=== PATIENT | female | born 1940 | race Caucasian/White ===

== ENCOUNTER 2024-06-02 14:03 | Emergency (ER) | payer MEDICARE, MEDICAID, SELFPAY ==
--- NOTE | 2024-06-02 14:16 | XR_ITS ---
Examination: CT brain head without contrast. 2-D sagittal coronal reconstructions Date and time of exam:June 02, 2024 at 1421 hrs. Indications: Stroke alert, onset focal neurologic deficit today CTDI: vol (mGy):45.1 DLP: (mGycm):831. Technique: Multiple CT axial sections of the brain have been obtained, 5 mm slice thickness. Contrast has not been administered. 2-D sagittal, coronal reconstructions have been obtained Low dose protocols were performed. One or more of the following dose reduction techniques were used; automated exposure control, adjustment of the mA and/or KV according to patient size, use of iterative reconstruction technique. Findings: No significant ventricular enlargement. Subtle low-density in the left cerebral hemisphere Intra-axial or extra-axial hemorrhage density is not seen. No mass effect or midline shift Basal cisterns are not remarkable. Fourth ventricle is midline. Cranial vault intact. Impression: Negative for acute hemorrhage, mass effect or midline shift Subtle low-density in the left cerebral hemisphere, which may be artifactual, however early acute infarct and left middle cerebral artery distribution cannot be excluded Recommend brain MRI follow-up without contrast, stroke protocol
--- NOTE | 2024-06-02 14:16 | EKG_ITS ---
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: : [id number] Requested By: Leni Mott Order Number: [id number] Reading MD: Leni Mott Measurements Intervals [place] Rate: 52 P: 65 DE: 223 QRS: -3 QRSD: 107 T: 33 QT: 465 QTc: 433 Interpretive Statements SINUS BRADYCARDIA WITH FIRST DEGREE AV BLOCK MODERATE INTRAVENTRICULAR CONDUCTION DELAY [105+ ms QRS DURATION, 80+ ms Q/S IN V1/V2, NO Q AND 60+ ms R IN I/aVL/V5/V6] Compared to ECG 10/22/2023 11:55:55 First degree AV block now present Intraventricular conduction delay now present Sinus rhythm no longer present ST (T wave) deviation no longer present /store/S0/[id number]/[id number].pdf
--- NOTE | 2024-06-02 14:17 | PD.EDADULT ---
ED General RME/HPI General Chief complaint: Altered Mental Status Stated complaint: ALTERED Time Seen by Provider: 06/02/24 14:16 Arrival date/time: 06/02/24 14:03 RME / HPI RME / HPI narrative: 84-year-old female with significant history of DVT, hypertension, GERD, anemia, dementia, was brought in by EMS for evaluation regarding strokelike symptoms. Last well-known time was around breakfast time, around 8:30 AM today, family visited her this afternoon and was noted to be less responsive than usual. Patient normally is GCS 14 currently GCS 10. Patient was noted to not moving the right upper and lower extremity also. Patient was noted to have neglect on the left side. No other pertinent information can be extracted at this time. Related Data Home Medications ?Medication ?Instructions ?Recorded ?Confirmed calcium carbonate 1,000 mg PO QDAY 05/20/23 10/19/23 hydrocodone 5 mg-acetaminophen 325 1 tab PO BID PRN Pain (Scale Score 05/20/23 10/19/23 mg tablet 7-10) melatonin 3 mg tablet 3 mg PO HS 05/20/23 10/19/23 acetaminophen 325 mg tablet 650 mg PO QID PRN Mild Pain (Scale 08/02/23 10/19/23 (Tylenol) Score 1-4) multivitamin with minerals 1 tab PO QDAY 08/02/23 10/19/23 bisacodyl 10 mg rectal suppository 10 mg UT QDAY PRN Constipation 10/19/23 10/19/23 (Dulcolax (bisacodyl)) fluticasone fur. 200 mcg-umeclid ea inhalation DAILY 10/19/23 62.5 mcg-vilant 25 mcg inhalat.powder (Trelegy Ellipta) ipratropium 0.5 mg-albuterol 3 mg 2.5 ml inhalation Q6HR PRN Wheezing 10/19/23 10/19/23 (2.5 mg base)/3 mL nebulization soln magnesium hydroxide 400 mg/5 mL 30 ml PO QDAY PRN Constipation 10/19/23 10/19/23 oral suspension (Milk of Magnesia) montelukast 10 mg tablet 10 mg PO QDAY 10/19/23 10/19/23 sodium phosphates 19 gram-7 118 ml UT QDAY PRN Constipation 10/19/23 10/19/23 gram/118 mL enema (Enema Disposable) Previous Rx's ?Medication ?Instructions ?Recorded lisinopril 20 mg tablet 20 mg PO QDAY 90 days #90 tabs 08/03/23 metoprolol succinate 25 mg 12.5 mg (1/2 x 25 mg) PO QDAY #15 10/25/23 tablet,extended release 24 hr tabs spironolactone 25 mg tablet 25 mg PO QDAY #30 tabs 10/25/23 Allergies Allergy/AdvReac Type Severity Reaction Status Date / Time No Known Drug Allergies Allergy Verified 06/02/24 18:08 Review of Systems Review of Systems Narrative Review of Systems: Review of system reviewed and within normal limits except mentioned in HPI Course Quality Measures none Orders Category Date Time Status Bedside Blood Glucose NOW Care 06/02/24 14:16 Completed Driver/Guide NOW Care 06/02/24 14:16 Completed Continuous Pulse Oximetry NOW Care 06/02/24 14:16 Completed EKG (ED ONLY) *Do not use* NOW Care 06/02/24 14:16 Completed In and Out Catheter NEEDED Care 06/02/24 14:16 Completed Insert IV NOW Care 06/02/24 14:16 Completed NIH Stroke Scale now Care 06/02/24 14:16 Completed NPO NOW Care 06/02/24 14:16 Completed Nurse Swallow Screen x1 Care 06/02/24 14:16 Completed Consult to Neurology / Tele-Neurology Routine Cons 06/02/24 14:16 Active Referral Hospice Stat Cons 06/02/24 15:[address] angio stroke protocol Stat Exams 06/02/24 14:[address] stroke protocol Stat Exams 06/02/24 14:16 Completed EKG (ED Only) Stat Exams 06/02/24 14:16 Draft Ammonia Stat Lab 06/02/24 14:33 Ordered CBC Stat Lab 06/02/24 14:16 Ordered Comprehensive Metabolic Panel Stat Lab 06/02/24 14:16 Ordered HCG Titer if Positive Stat Lab 06/02/24 14:16 Ordered Magnesium Stat Lab 06/02/24 14:16 Ordered Partial Thromboplastin Time Stat Lab 06/02/24 14:16 Ordered Prothrombin Time with INR Stat Lab 06/02/24 14:16 Ordered Troponin I Stat Lab 06/02/24 14:16 Ordered Aspirin Supp Med 06/02/24 14:51 Discontinued 300 mg UT X1 ONE Morphine Inj Med 06/02/24 16:58 Discontinued 2 mg IVP Q30M PRN Ondansetron Inj [Zofran Inj] Med 06/02/24 14:16 Discontinued 4 mg IV Q4HR PRN Ondansetron Inj [Zofran Inj] Med 06/02/24 17:00 Discontinued 4 mg IV X1 ONE Ringers Lactated 500 ml [Lactated Ringers] 500 ml Med 06/02/24 17:00 Discontinued IV 125 mls/hr Oxygen Delivery NOW RT 06/02/24 14:16 Completed Vital Signs Vital signs: Vital Signs Temperature 97.4 F 06/02/24 15:03 Pulse Rate 67 06/02/24 15:03 Respiratory Rate 15 06/02/24 15:03 Blood Pressure 121/50 L 06/02/24 15:03 Pulse Oximetry (%) 100 06/02/24 15:03 Oxygen Delivery Method Nasal Cannula 06/02/24 15:03 Oxygen Flow Rate 2 06/02/24 15:03 Discharge Plan Plan Patient Disposition: Xfer Skilled Nsg Fac (SNF) Prescriptions/Referrals Prescriptions/Med Rec: No Action melatonin 3 mg Tablet 3 mg PO HS calcium carbonate 500 mg calcium (1,250 mg) Tablet,Chewable 1,000 mg PO QDAY hydrocodone-acetaminophen 5-325 mg Tablet 1 tab PO BID PRN (Reason: Pain (Scale Score 7-10)) acetaminophen [Tylenol] 325 mg Tablet 650 mg PO QID PRN (Reason: Mild Pain (Scale Score 1-4)) multivitamin with minerals Tablet 1 tab PO QDAY lisinopril 20 mg Tablet 20 mg PO QDAY 90 Days Qty: 90 1RF ipratropium-albuterol 0.5 mg-3 mg(2.5 mg base)/3 mL Solution For Nebulization 2.5 ml INHALATION Q6HR MDD 10 PRN (Reason: Wheezing) magnesium hydroxide [Milk of Magnesia] 400 mg/5 mL Suspension 30 ml PO QDAY PRN (Reason: Constipation) Rx Instructions: if no bm in 3 days bisacodyl [Dulcolax (bisacodyl)] 10 mg Suppository 10 mg UT QDAY MDD 1 PRN (Reason: Constipation) Enema Disposable 19-7 gram/118 mL Enema 118 ml UT QDAY MDD 1 PRN (Reason: Constipation) montelukast 10 mg Tablet 10 mg PO QDAY Treleebony Ellipta 200-62.5-25 mcg Blister With Device INHALATION DAILY metoprolol succinate 25 mg tablet extended release 24 hr 12.5 mg PO QDAY Qty: 15 3RF spironolactone 25 mg tablet 25 mg PO QDAY Qty: 30 3RF Referrals: Jeff Lechuga MD [Primary Care Provider] - In 1 week Problem List Clinical Impression: Acute CVA (cerebrovascular accident), Hospice care Patient/Caregiver Discharge Instructions Education Materials: Effects of a Stroke on the ... Additional Instructions: Thank you for the opportunity for serving you today. You are stable for discharged . You are advised to: Follow-up with your hospice care in your facility Return to ED for worsening of symptoms Print Language: Turkish Stand Alone Forms: Lilly Award Info., Patient Portal Info Letter [facility] Patient Acuity Narrative: 84 y o female with significant history of DVT, hypertension, GERD, anemia, dementia, was brought in by EMS for evaluation regarding strokelike symptoms. Last well-known time was around breakfast time, around 8:30 AM today, family visited her this afternoon and was noted to be less responsive than usual. Patient normally is GCS 14 currently GCS 10. Patient was noted to not moving the right upper and lower extremity also. Patient was noted to have neglect on the left side. No other pertinent information can be extracted at this time. Stroke alert was initiated right away CT of the head showedNegative for acute hemorrhage, mass effect or midline shift Subtle low-density in the left cerebral hemisphere, which may be artifactual, however early acute infarct and left middle cerebral artery distribution cannot be excluded Recommend brain MRI follow-up without contrast, stroke protocol CTA of the head and neck showed Dense opacity in the left upper lobe, consider aspiration pneumonia Occlusion proximal left internal carotid artery with thrombus in the internal carotid artery, no filling of the left petrous juxtasellar supraclinoid internal carotid artery No filling M1 segment left middle cerebral artery or left middle cerebral artery trifurcation vessels Plan of care discussed with the patient family. Discussed option of transferring her since the onset last well-known time is less than 24 hours, family made a conference with other siblings, and decided to follow the wishes of the patient not to do intubation or chest compression. And they ultimately decided to do hospice care. Patient was referred to social insurance administrator and social insurance administrator arrange for hospice care. [facility] Medication Administration(s) Medication Administration History Discontinued Medications Aspirin (Aspirin 300 Mg Supp) 300 mg UT X1 ONE Stop: 06/02/24 14:52 Last Admin: 06/02/24 18:39 Dose: Not Given Documented By: ZINA Non-Admin Reason: Other, see note Lactated Ringer's (Lactated Ringers) 500 mls @ 125 mls/hr IV .Q4H ONE Stop: 06/02/24 20:59 Last Admin: 06/02/24 18:39 Dose: 125 mls/hr Documented By: ZINA Morphine Sulfate (Morphine Sulf Inj 10 Mg/Ml Vial) 2 mg IVP Q30M PRN PRN Reason: AGITATION Last Admin: 06/02/24 18:27 Dose: 2 mg Documented By: ZINA Ondansetron HCl (Ondansetron Inj 2 Mg/Ml Inj 2 Ml) 4 mg IV Q4HR PRN PRN Reason: NAUSEA OR VOMITING Stop: 07/02/24 14:15 Ondansetron HCl (Ondansetron Inj 2 Mg/Ml Inj 2 Ml) 4 mg IV X1 ONE; Protocol Stop: 06/02/24 17:01 Last Admin: 06/02/24 18:14 Dose: 4 mg Documented By: ZINA
--- NOTE | 2024-06-02 14:41 | XR_ITS ---
Examination: CTA carotids with intravenous contrast CTA brain, head with intravenous contrast. 2-D sagittal, coronal reconstructions. 3-D reconstructions. Exam date and time: June 02, 2024 1433 hrs. Stroke alert, onset focal neurologic deficit today CTDI: vol (mGy) 21 DLP: (mGycm) 370 Technique: Multiple CTA axial brain, head carotid images post intravenous contrast injection 100 cc, [id number]. 2-D sagittal, coronal reconstructions. 3-D reconstructions, 3-D post processing including vascular maximum intensity projection images. Low dose protocols were performed. One or more of the following dose reduction techniques were used; automated exposure control, adjustment of the mA and/or KV according to patient size, use of iterative reconstruction technique. Findings: Dense opacity in the left upper lobe Moderate calcification at the right carotid bifurcation, 20% stenosis involving the bifurcation and origin of the internal carotid artery Occlusion of the proximal left internal carotid artery with thrombus in the internal carotid artery, no filling including in the petrous and juxtasellar portions internal carotid artery Right M1 segment middle cerebral artery trifurcation vessels fill No filling of the supraclinoid portion of the left internal carotid artery and occlusion of the M1 segment left middle cerebral artery no filling of left middle cerebral artery trifurcation vessels Attenuated anterior cerebral arteries and posterior cerebral arteries do fill with 80% stenosis P1 segment right posterior cerebral artery Impression: Dense opacity in the left upper lobe, consider aspiration pneumonia Occlusion proximal left internal carotid artery with thrombus in the internal carotid artery, no filling of the left petrous juxtasellar supraclinoid internal carotid artery No filling M1 segment left middle cerebral artery or left middle cerebral artery trifurcation vessels
--- NOTE | 2024-06-02 14:55 | ESCONSULT_ITS ---
Tele Neuro Consultation Consultation Date 06/02/24 Consultation Narrative [facility] Tele[facility]urology Consult Services Patient Name:???Libertad Longoria Date of :???1940 Identification Number:??? Date of Service:???06/02/2024 14:17:06 Diagnosis:?G93.49 - Encephalopathy Multifactorial ?I63.032 - Cerebrovascular accident (CVA) due to thrombosis of left carotid artery (HCCC) ?I63.312 - Cerebrovascular accident (CVA) due to thrombosis of left middle cerebral artery (HCCC) Impression: ?patient is a 84-year-old female with a past medical history significant for hypertension, iron deficiency anemia, peripheral vascular disease, renal cancer, Parkinson's disease is being evaluated for concerns of unresponsiveness. ? ?Most of the history is obtained from EMS staff. Patient comes from a assisted living facility/[place] [facility]. As per staff report to EMS patient's last well- known was approximately 8:30 AM on 9 AM. She was seen at that time sitting on her wheelchair and eating breakfast. After that at around 1:20 PM patient was found unresponsive. ? ?On exam patient appears obtunded, minimal sluggish pupillary reaction as per nursing staff. Withdraws to painful stimuli on left upper extremity, bilateral lower extremity. Has a mild left-sided gaze preference. No language or speech output. Flaccid right upper extremity. ?Head CT appears unremarkable to my review. No medication list from [place] [facility]. ? ?Have to rule out acute ischemic infarct involving the left frontal lobe. Last well-known is outside IV thrombolytic window. Not a thrombolytic candidate. ?Consider a broad encephalopathy workup with toxic, metabolic and infectious etiologies. ?No medication list from [place] [facility]. If not on antithrombotics, can start aspirin 81 mg when permissible. ?Please obtain MRI brain with and without contrast. ?If etiology remains cryptic can consider EEG. ? ?Addendum: ?CTA results show complete L ICA occlusion intracranially. ?Please call [facility] Stat for potential thrombectomy options. ?ED Physician notified at 2:54 PM Local time. Our recommendations are outlined below. Recommendations: ? Stroke/Telemetry Floor ? Neuro Checks ? Bedside Swallow Eval ? DVT Prophylaxis ? IV Fluids, Normal Saline ? Head of Bed 30 Degrees ? Euglycemia and Avoid Hyperthermia (PRN Acetaminophen) ? Aspirin per rectum ? Antihypertensives PRN if Blood pressure is greater than 220/120 or there is a concern for End organ damage/contraindications for permissive HTN. If blood pressure is greater than 220/120 give labetalol PO or IV or Vasotec IV with a goal of 15% reduction in BP during the first 24 hours. ?Please call [facility] Stat for potential thrombectomy options. ?Please obtain MRI brain with and without contrast. Sign Out: ? Discussed with Emergency Department Provider Advanced Imaging:CTA Head and Neck Completed. LVO:Yes Discussed with [facility] :No Metrics: Last Known Well: 06/02/2024 08:30:00 Dispatch Time: 06/02/2024 14:17:06 Arrival Time: 06/02/2024 14:17:14 Initial Response Time: 06/02/2024 14:18:40Symptoms: Unresponsiveness. Initial patient interaction: 06/02/2024 14:30:06 NIHSS Assessment Completed: 06/02/2024 14:33:55Patient is not a candidate for Thrombolytic. Thrombolytic Medical Decision: 06/02/2024 14:34:38Patient was not deemed candidate for Thrombolytic because of following reasons: LKW outside 4.5 hr window. . I personally Reviewed the CT Head and it Showed no acute changes Primary Provider Notified of Diagnostic Impression and Management Plan on: 06/02/2024 14:54:22 History of Present Illness:Patient is a 84 year old Female. Patient was brought by EMS for symptoms of Unresponsiveness. patient is a 84-year-old female with a past medical history significant for hypertension, iron deficiency anemia, peripheral vascular disease, renal cancer, Parkinson's disease is being evaluated for concerns of unresponsiveness. Most of the history is obtained from EMS staff. Patient comes from a [place] [facility]. As per staff report to EMS patient's last well- known was approximately 8:30 AM on 9 AM. She was seen at that time sitting on her wheelchair and eating breakfast. After that at around 1:20 PM patient was found unresponsive. Patient appears obtunded in the ED. Minimal reaction to painful stimuli. ? Past Medical History: ?Hypertension ?Coronary Artery Disease ?Stroke ?There is no history of Diabetes Mellitus Other PMH:? Parkinsons, esophageal varices, CHF, Iron deficience, ?PVD, HTN, renal cancer, left artifiical hip ?DVT in LLE, Liver cirrhosis Medications: Anticoagulant use:??Unknown Antiplatelet use:?Unknown Reviewed EMR for current medications Allergies:? Description:?As per chart Social History: Unable To Obtain Due To Patient Status :?Patient Cannot Communicate Relevant Social History Family History: There is no family history of premature cerebrovascular disease pertinent to this consultation ROS : 14 Points Review of Systems was performed and was negative except mentioned in HPI. Past Surgical History: There Is No Surgical History Contributory To Today?s Visit ? Examination: BP(108/66),?Pulse(54),?Blood Glucose(158) 1A: Level of Consciousness - Postures or Unresponsive?+ 3 1B: Ask Month and Age - Could Not Answer Either Question Correctly?+ 2 1C: Blink Eyes & Squeeze Hands - Performs 0 Tasks?+ 2 2: Test Horizontal Extraocular Movements - Partial Gaze Palsy: Can Be Overcome?+ 1 3: Test Visual Colbert - No Visual Loss?+ 0 4: Test Facial Palsy (Use Grimace if Obtunded) - Normal symmetry?+ 0 5A: Test Left Arm Motor Drift - No Effort Against [place]?+ 3 5B: Test Right Arm Motor Drift - No Movement?+ 4 6A: Test Left Leg Motor Drift - No Effort Against [place]?+ 3 6B: Test Right Leg Motor Drift - No Effort Against [place]?+ 3 7: Test Limb Ataxia (FNF/Heel-Jones) - No Ataxia?+ 0 8: Test Sensation - Normal; No sensory loss?+ 0 9: Test Language/Aphasia - Coma/Unresponsive?+ 3 10: Test Dysarthria - Mute/Anarthric?+ 2 11: Test Extinction/Inattention - Visual/tactile/auditory/spatial/personal inattention?+ 1 NIHSS Score:?27 Pre-Morbid Modified Aiden Scale:4 Points = Moderately severe disability; unable to walk and attend to bodily needs without assistance Spoke with :?ED Provider This consult was conducted in real time using interactive audio and video technology. Patient was informed of the technology being used for this visit and agreed to proceed. Patient located in hospital and provider located at home/office setting. Patient is being evaluated for possible acute neurologic impairment and high probability of imminent or life-threatening deterioration. I spent total of 45 minutes providing care to this patient, including time for face to face visit via telemedicine, review of medical records, imaging studies and discussion of findings with providers, the patient and/or family. Dr Delgado [facility] For Inpatient follow-up with [facility] physician please call [facility] at . As we are not an outpatient service for any post hospital discharge needs please contact the hospital for assistance. If you have any questions for the [facility] physicians or need to reconsult for clinical or diagnostic changes please contact us via [facility] at . ?
[2024-06-02 15:03] VITALS: BP 121/50; PULSE 67; RESP 15; TEMP 36.3; O2SAT 100
[2024-06-02 15:18] VITALS: PULSE 52; RESP 17; O2SAT 100
--- NOTE | 2024-06-02 15:18 | PC.CC ---
1500-Made aware by CHarge Nurse Sheyla patient needs stat transfer for LVO called [facility] to start transfer, chart faxed, Spoke to Lizzette at [facility] to start transport, 1515 Sheyla Charge Nurse then called back and said to cancel family wants patient to be comfort care
--- NOTE | 2024-06-02 15:52 | PC.CC ---
Sujata KINSEY was consulted by CONNIE Mott regarding setting up hospice for patient. ASW made face to face contact with patient who is not alert and oriented and family who is at bedside. ASW introduced self, role, and reason for visit to the family. Patient's daughter Dianelys reports she would like to place patient on hospice and send her back to [facility]. ASW explored with daughter if she had a hospice company in mind and she reports she would like to use [facility]. ASW sent referral to [facility] via [employer]. Vanesa with [facility] made telephone contact with ASW and reports they can accept patient. Vanesa reports they will be making contact with daughter Dianelys. ASW to arrange transportation back to [facility] via [employer].
[2024-06-02 17:05] VITALS: BP 133/40; PULSE 52; RESP 18; TEMP 36.9; O2SAT 100
[2024-06-02] MEDS: ONDANSETRON INJ 2 MG/ML INJ 2 ML 4 MG IV (18:14)
[2024-06-02 18:17] VITALS: BP 132/43; PULSE 53; RESP 22; TEMP 35.8; O2SAT 100
[2024-06-02] MEDS: MORPHINE SULF INJ 10 MG/ML VIAL 2 MG IVP (18:27)
[2024-06-02] MEDS: RINGERS LACTATED 500 ML 500 ML 125 ML IV (18:39)
== END 2024-06-02 19:44 | disposition skilled nursing facility (03) ==
PROVIDERS: Emergency Provider Emergency Medicine; PCP Internal Medicine
DX: I63.9 Cerebral infarction, unspecified (principal); Z51.5 Encounter for palliative care; I44.0 Atrioventricular block, first degree; I10 Essential (primary) hypertension
CPT/HCPCS: 70450; 70496; 70498; 80053; 80307; 81001; 82140; 83735; 84484; 84703; 85025; 85610; 85730; 87086; 93005; 96374; 96375; 99285; A4649; J2270; J2405; J7120; Q9967